=== PATIENT | female | born 1980 | race Two or more races ===

== ENCOUNTER 2020-09-10 15:33 | Outpatient (CLI) | payer SELFPAY ==
[~2020-09-10] VITALS: Ht 160 cm; Wt 63.2 kg
[2020-09-10] MEDS ORDERED: PREN1TAB60 PO (15:38)
[2020-09-10] MEDS ORDERED: [UNRECOGNIZED DRUG - CODE] PO (15:39)
[2020-09-10] MEDS ORDERED: OXYM15MI22 NAS (15:41)
[2020-09-10] MEDS ORDERED: BETAMETHASONE 6 MG/ML, 5ML IM STA (15:42)
[2020-09-10 15:58] VITALS: BP 92/55
== END 2020-09-10 16:58 | disposition home or self-care (01) ==
LOC: LDOP 15:33
PROVIDERS: ATTEND Obstetrics & Gynecology
DX: Z34.93 Encounter for supervision of normal pregnancy, unspecified, third trimester (principal); Z3A.34 34 weeks gestation of pregnancy
CPT/HCPCS: 59025; 96372; J0702

== ENCOUNTER 2020-09-11 16:38 | Outpatient (CLI) | payer SELFPAY ==
[~2020-09-11] VITALS: Ht 160 cm; Wt 62.7 kg
[~2020-09-11 16:38] MED LIST: OXYM15MI22 NAS; PREN1TAB60 PO; [UNRECOGNIZED DRUG - CODE] PO
[2020-09-11 16:44] VITALS: BP 97/58
[2020-09-11] MEDS ORDERED: BETAMETHASONE 6 MG/ML, 5ML IM ONE (17:00)
== END 2020-09-11 17:00 | disposition home or self-care (01) ==
LOC: LDOP 16:38
PROVIDERS: ATTEND Obstetrics & Gynecology
DX: Z34.93 Encounter for supervision of normal pregnancy, unspecified, third trimester (principal); Z3A.34 34 weeks gestation of pregnancy
CPT/HCPCS: 59025; 96372; J0702

== ENCOUNTER 2020-09-20 17:32 | Inpatient (IN) | payer OTHER ==
[~2020-09-20] VITALS: Ht 160 cm; Wt 62.7 kg
[2020-09-20] MEDS ORDERED: LACTATED RINGERS 500 ML IVBOLUS ONE (18:00)
[2020-09-20] MEDS ORDERED: TERBUTALINE 1 MG/ML, 1ML SQ ONE (18:00)
[2020-09-20] MEDS ORDERED: LACTATED RINGERS 1,000 ML IV SCH (18:00)
[2020-09-20 18:19] VITALS: BP 100/58
[2020-09-20 18:34] LABS: BASOPHILS % (AUTO) 1 % (0-1); EOSINOPHILS % (AUTO) 7 % (1-7); LYMPHOCYTES % (AUTO) 19 % (22-44); MEAN CORPUSCULAR HEMOGLOBIN 27.8 pg (27.0-34.8); MEAN CORPUSCULAR HGB CONC 34.6 g/dL (32.4-35.8); MEAN PLATELET VOLUME 11.7 fL (7.4-10.4); MONOCYTES % (AUTO) 15 % (2-9); NEUTROPHILS % (AUTO) 59 % (42-75); PLATELET COUNT 173 x10^3/uL (130-400); RED BLOOD COUNT 3.49 x10^6/uL (3.82-5.3); RED CELL DISTRIBUTION WIDTH 14.4 % (9.6-15.2)
[2020-09-20] MEDS ORDERED: NEWBORN KIT ONE (19:20)
[2020-09-20] MEDS ORDERED: METOCLOPRAMIDE 5 MG/ML, 2ML ONE (19:21)
[2020-09-20] MEDS ORDERED: SODIUM CITRATE/CITRIC ACID 15 ML UDC ONE (19:21)
[2020-09-20] MEDS ORDERED: SODIUM CHLORIDE FLUSH 10ML SYR IVF PRN (22:00)
[2020-09-20] MEDS ORDERED: D5%-LACTATED RINGERS 1,000 ML IV SCH (22:00)
[2020-09-20] MEDS ORDERED: TERBUTALINE 1 MG/ML, 1ML IVPush PRN (22:00)
[2020-09-20] MEDS ORDERED: TERBUTALINE 1 MG/ML, 1ML SQ PRN (22:00)
[2020-09-20] MEDS ORDERED: CALCIUM CARBONATE 500 MG TAB.CHEW PO PRN (22:30)
[2020-09-20] MEDS ORDERED: ONDANSETRON 2MG/ML, 2ML IVPush ONE (22:30)
[2020-09-20] MEDS ORDERED: SODIUM CITRATE/CITRIC ACID 30 ML UDC PO ONE (22:30)
[2020-09-20] MEDS ORDERED: METOCLOPRAMIDE 5 MG/ML, 2ML IV ONE (22:30)
[2020-09-21] MEDS ORDERED: MEPERIDINE/PF 25MG/0.5ML IVPush PRN (08:00)
[2020-09-21] MEDS ORDERED: METOPROLOL 1 MG/ML, 5ML IV PRN (08:00)
[2020-09-21] MEDS ORDERED: PROMETHAZINE 25 MG/ML, 1ML IV PRN (08:00)
[2020-09-21] MEDS ORDERED: LABETALOL 5MG/ML, 20ML IV PRN (08:00)
[2020-09-21] MEDS ORDERED: EPHEDRINE 50 MG/ML, 1ML IVPush PRN (08:00)
[2020-09-21] MEDS ORDERED: OXYcodone 5 MG/5 ML ORAL.SOL UDC PO PRN (08:00)
[2020-09-21] MEDS ORDERED: ONDANSETRON 2MG/ML, 2ML IVPush PRN (08:00)
[2020-09-21] MEDS ORDERED: hydrALAzine 20 MG/ML, 1ML IV PRN (08:00)
[2020-09-21] MEDS ORDERED: ALBUTEROL SULFATE 2.5 MG/3 ML NPPB PRN (08:00)
[2020-09-21] MEDS ORDERED: HYDROcodone/APAP 7.5-325MG/15ML UDC PO PRN (08:00)
[2020-09-21] MEDS ORDERED: MIDAZOLAM 1 MG/ML, 2ML IV PRN (08:00)
[2020-09-21] MEDS ORDERED: HYDROmorphone 2 MG/ML, 1ML IVPush PRN (08:00)
[2020-09-21] MEDS ORDERED: FENTANYL PF 100 MCG/2ML IV PRN (08:00)
[2020-09-21] MEDS ORDERED: PRENATAL VIT/IRON/FA 1 EACH TABLET ONE (22:06)
[2020-09-21] MEDS: PRENATAL VIT/IRON/FA 1 EACH TABLET PO SCH (22:07)
[2020-09-22] MEDS ORDERED: METOCLOPRAMIDE 5 MG/ML, 2ML ONE (11:05)
[2020-09-22] MEDS ORDERED: SODIUM CITRATE/CITRIC ACID 15 ML UDC ONE (11:05)
[2020-09-22] MEDS ORDERED: CEFAZOLIN 1,000 MG ONE (11:32)
[2020-09-22] MEDS ORDERED: EPINEPHRINE 1 MG/ML, 1ML ONE (11:33)
[2020-09-22] MEDS ORDERED: EPHEDRINE 50 MG/ML, 1ML ONE (11:33)
[2020-09-22] MEDS ORDERED: FENTANYL PF 100 MCG/2ML ONE (11:33)
[2020-09-22] MEDS ORDERED: OXYTOCIN 10 UNITS/ML, 1ML ONE (11:33)
[2020-09-22] MEDS ORDERED: morphine SULFATE 10 MG/ML, 1ML IVPush PRN (13:30)
[2020-09-22] MEDS ORDERED: IBUPROFEN 600 MG TABLET PO PRN (13:30)
[2020-09-22] MEDS ORDERED: CARBOPROST TROMETHAMINE 250 MCG/ML, 1ML IM PRN (13:30)
[2020-09-22] MEDS ORDERED: ONDANSETRON 2MG/ML, 2ML IV PRN (13:30)
[2020-09-22] MEDS ORDERED: SIMETHICONE 80 MG CHEW TAB PO PRN ×2 (13:30)
[2020-09-22] MEDS ORDERED: MEPERIDINE/PF 25MG/0.5ML IVPush PRN (13:30)
[2020-09-22] MEDS ORDERED: DOCUSATE 50 MG/5 ML, 10ML UDC PO PRN (13:30)
[2020-09-22] MEDS ORDERED: ACETAMINOPHEN 325 MG TABLET PO PRN ×2 (13:30)
[2020-09-22] MEDS ORDERED: EPHEDRINE 50 MG/ML, 1ML IVPush PRN (13:30)
[2020-09-22] MEDS ORDERED: OXYcodone 5 MG/5 ML ORAL.SOL UDC PO PRN (13:30)
[2020-09-22] MEDS ORDERED: OXYcodone IR 5MG TABLET PO PRN (13:30)
[2020-09-22] MEDS ORDERED: MISOPROSTOL 200 MCG TABLET PR PRN (13:30)
[2020-09-22] MEDS ORDERED: OXYTOCIN 30U/ 0.9% NaCL 500ML 500 ML IV SCH (13:30)
[2020-09-22] MEDS ORDERED: FENTANYL PF 100 MCG/2ML IV PRN (13:30)
[2020-09-22] MEDS ORDERED: OXYcodone/APAP 5/325MG TABLET PO PRN (13:30)
[2020-09-22] MEDS ORDERED: METHYLERGONOVINE 0.2 MG/ML IM PRN (13:30)
[2020-09-22] MEDS ORDERED: DOCUSATE 100 MG CAPSULE PO PRN (13:30)
[2020-09-22] MEDS ORDERED: LACTATED RINGERS 1,000 ML IV SCH ×2 (13:30)
[2020-09-22] MEDS ORDERED: ONDANSETRON 2MG/ML, 2ML IVPush PRN (13:30)
[2020-09-22 16:51] VITALS: BP 100/63
[2020-09-22] MEDS: KETOROLAC 30 MG/1 ML IVPush SCH (17:25)
[2020-09-22 20:00] VITALS: BP 99/60
[2020-09-22] MEDS: DOCUSATE 100 MG CAPSULE PO SCH (21:33)
[2020-09-22] MEDS: OXYcodone IR 5MG TABLET PO PRN (21:34)
[2020-09-22 21:56] LABS: BASOPHILS % (AUTO) 1 % (0-1); EOSINOPHILS % (AUTO) 3 % (1-7); LYMPHOCYTES % (AUTO) 11 % (22-44); MEAN CORPUSCULAR HEMOGLOBIN 26.3 pg (27.0-34.8); MEAN CORPUSCULAR HGB CONC 32.8 g/dL (32.4-35.8); MEAN PLATELET VOLUME 11.1 fL (7.4-10.4); MONOCYTES % (AUTO) 9 % (2-9); NEUTROPHILS % (AUTO) 77 % (42-75); PLATELET COUNT 156 x10^3/uL (130-400); RED BLOOD COUNT 3.16 x10^6/uL (3.82-5.3); RED CELL DISTRIBUTION WIDTH 14.5 % (9.6-15.2)
[2020-09-23 00:10] VITALS: BP 100/69
[2020-09-23] MEDS: KETOROLAC 30 MG/1 ML IVPush SCH ×5 (00:11→23:02)
[2020-09-23] MEDS: OXYcodone IR 5MG TABLET PO PRN ×2 (01:39→05:34)
[2020-09-23 04:45] VITALS: BP 103/72
[2020-09-23 07:25] VITALS: BP 93/56
[2020-09-23] MEDS: DOCUSATE 100 MG CAPSULE PO SCH ×2 (07:43→23:02)
[2020-09-23] MEDS: PRENATAL VIT/IRON/FA 1 EACH TABLET PO SCH (07:43)
[2020-09-23] MEDS ORDERED: PRENATAL VIT/IRON/FA 1 EACH TABLET PO SCH (09:00)
[2020-09-23] MEDS: HYDROcodone/APAP 5/325 TABLET PO PRN ×2 (11:01→16:01)
[2020-09-23] MEDS: FERROUS GLUCONATE 324 MG TABLET PO SCH (17:00)
[2020-09-23 19:25] VITALS: BP 90/56
[2020-09-24] MEDS: KETOROLAC 30 MG/1 ML IVPush SCH ×3 (05:04→17:00)
[2020-09-24 07:25] VITALS: BP 99/64
[2020-09-24] MEDS: DOCUSATE 100 MG CAPSULE PO SCH (07:52)
[2020-09-24] MEDS: FERROUS GLUCONATE 324 MG TABLET PO SCH (07:52)
[2020-09-24] MEDS ORDERED: FERR324T23 PO (08:10)
[2020-09-24] MEDS ORDERED: SIME80TA16 PO (08:10)
[2020-09-24] MEDS ORDERED: DOCU50LI26 PO (08:10)
[2020-09-24] MEDS ORDERED: HYDR-2214 PO (08:10)
[2020-09-24] MEDS ORDERED: IBUP-1222 PO (08:45)
[2020-09-24] MEDS: PRENATAL VIT/IRON/FA 1 EACH TABLET PO SCH (09:00)
[2020-09-24] MEDS ORDERED: DIPH,PERTUSS(ACELL),TET VAC/PF NC IM-VACC ONE (16:22)
== END 2020-09-24 17:15 | disposition home or self-care (01) | DRG 787 ==
LOC: LDOP 17:32 → LDIP 17:50 → OBSVTOIN 21:55 → 2NW 09-22 15:12
PROVIDERS: ADMIT Obstetrics & Gynecology; ATTEND Obstetrics & Gynecology
PROC: 10D00Z1 Extraction of Products of Conception, Low, Open Approach (ICD-10-PCS; principal; 2020-09-22)
DX: O32.1XX0 Maternal care for breech presentation, not applicable or unspecified (principal); O44.03 Complete placenta previa NOS or without hemorrhage, third trimester; Z20.822 Contact with and (suspected) exposure to COVID-19; O99.613 Diseases of the digestive system complicating pregnancy, third trimester; Z3A.36 36 weeks gestation of pregnancy; Z37.0 Single live birth; Z88.8 Allergy status to other drugs, medicaments and biological substances
CPT/HCPCS: 36415; 85025; 86592; 86850; 86900; 86923; 87635; 88307; G0378; J0171; J0690; J1885; J3010; J7120; J2590; J3105